=== PATIENT | female | born 1985 | race Caucasian/White ===

== ENCOUNTER 2022-07-05 18:47 | Emergency (ER) | payer SELFPAY ==
[2022-07-05] MEDS ORDERED: HYDROcodone/Acetaminophen 10/325 mg Tablet ONE (19:09)
[2022-07-05] MEDS ORDERED: AMOXicillin 250 MG CAP ONE (19:09)
== END 2022-07-05 19:27 | disposition home or self-care (01) ==
LOC: BURERS 18:47
DX: K04.7 Periapical abscess without sinus (principal); K02.9 Dental caries, unspecified; K03.81 Cracked tooth
CPT/HCPCS: 99282